=== PATIENT | male | born 1960 | race African-American/Black ===

== ENCOUNTER 2023-03-09 01:33 | Emergency (ER) | payer BC ==
[~2023-03-09] VITALS: Ht 177.8 cm; Wt 84.0 kg
[2023-03-09 01:42] VITALS: TEMP 98.3; O2SAT 99
[2023-03-09 02:19] LABS: BASOPHILS % 0.6 % (0.0-2.0); EOSINOPHILS % 1.7 % (0.0-5.0); HEMATOCRIT. 38.4 % (42.0-52.0); HEMOGLOBIN. 12.5 g/dL (14.0-18.0); LYMPHOCYTES % 23.7 % (20.0-50.0); MEAN CORPUSCULAR HEMOGLOBIN 28.1 pg (28.0-32.0); MEAN CORPUSCULAR HGB CONC 32.6 g/dL (31.0-37.0); MEAN CORPUSCULAR VOLUME 86.3 fL (80.0-94.0); MONOCYTES % 10.6 % (2.0-8.0); NEUTROPHILS % 63.4 % (40.0-76.0); PLATELET 406 x1000/uL (130-400); RED BLOOD CELL COUNT 4.45 mill/uL (4.7-6.1); RED CELL DISTRIBUTION WIDTH 16.7 % (11.6-14.6); WHITE BLOOD COUNT 12.1 x1000/uL (4.5-11.0)
[2023-03-09 02:29] LABS: INR 1.1; PROTHROMBIN TIME 11.3 sec (9.6-11.0)
[2023-03-09 02:33] LABS: ALANINE AMINOTRANSFERASE 33 IU/L (10-49); ALBUMIN 4.5 g/dL (3.2-4.8); ASPARTATE AMINOTRANSFERASE 46 IU/L (<34); BILIRUBIN TOTAL 0.2 mg/dL (0.1-1.0); CALCIUM 9.7 mg/dL (8.7-10.4); CARBON DIOXIDE 27 mEq/L (21-32); CHLORIDE 103 mEq/L (98-107); CREATININE 2.1 mg/dL (0.6-1.3); GLUCOSE 195 mg/dL (70-105); POTASSIUM 3.4 mEq/L (3.5-5.1); PROTEIN TOTAL 7.8 g/dL (6.0-8.3); SODIUM 139 mEq/L (136-145); TROPONIN I HIGH SENSITIVITY 20 ng/L (3.0-53); UREA NITROGEN BLOOD 22 mg/dL (9-23)
[2023-03-09] MEDS ORDERED: ASPIRIN 325MG EC TABLET PO ONE (02:45)
[2023-03-09] MEDS ORDERED: ATORVASTATIN CALCIUM 40MG TABLET PO ONE (02:45)
[2023-03-09 02:54] LABS: ETHANOL BLOOD < 10 mg/dL (<10)
[2023-03-09] MEDS ORDERED: ASPIRIN 325MG EC TABLET PO NR (03:30)
[2023-03-09 03:34] LABS: CLARITY URINE CLEAR (CLEAR); COLOR URINE YELLOW (YELLOW); GLUCOSE URINE 3+ (NEGATIVE); KETONES URINE NEGATIVE (NEGATIVE); LEUKOCYTE ESTERASE URINE NEGATIVE (NEGATIVE); NITRITE URINE NEGATIVE (NEGATIVE); OCCULT BLOOD URINE NEGATIVE (NEGATIVE); PROTEIN URINE NEGATIVE (NEGATIVE); SPECIFIC GRAVITY URINE 1.043 (1.005-1.030); UROBILINOGEN URINE 0.2 E.U./dL (0.2-1.0)
[2023-03-09 03:41] LABS: *AMPHETAMINES SCREEN URINE NEGATIVE (NEGATIVE); *BARBITURATES SCREEN URINE NEGATIVE (NEGATIVE); *BENZODIAZEPINES SCREEN URINE NEGATIVE (NEGATIVE); *COCAINE SCREEN URINE NEGATIVE (NEGATIVE); CANNABINOID URINE SCREEN NEGATIVE (NEGATIVE); ECSTASY MDMA SCREEN URINE NEGATIVE (NEGATIVE); METHADONE URINE SCREEN Neg (NEGATIVE); OPIATES URINE SCREEN NEGATIVE (NEGATIVE); PHENCYCLIDINE URINE SCREEN NEGATIVE (NEGATIVE)
[2023-03-09 03:58] VITALS: BP 166/72; PULSE 84; RESP 22
[2023-03-09 04:24] LABS: RBC URINE NONE SEEN /hpf (0-2); SQUAMOUS EPITHELIAL CELL URINE NONE SEEN /lpf (RARE/1+); WBC URINE 0-2 /hpf (0-2)
[2023-03-09 04:25] LABS: BACTERIA URINE NONE SEEN; YEAST URINE NONE SEEN
[2023-03-09] MEDS ORDERED: IOHEXOL-350 100 ML BOTTLE ONE (06:07)
== END 2023-03-09 04:34 | disposition short-term general hospital (02) ==
LOC: ER 01:33
DX: I66.01 Occlusion and stenosis of right middle cerebral artery (principal); I65.21 Occlusion and stenosis of right carotid artery; Z20.822 Contact with and (suspected) exposure to COVID-19
CPT/HCPCS: 80053; 80305; 81003; 80320; 85025; 85610; 84484; 36415; 71045; 70496; 70498; 70450; 93005; 99291; 87426; Q9967; Z7610; C9803; G0480